=== PATIENT | female | born 1995 | race African-American/Black ===

== ENCOUNTER 2016-05-23 08:24 | Day surgery (SDC) | payer MEDICAID, OTHER ==
[2016-05-20 11:47] LABS: APPEARANCE,URINE SLIGHTLY-CLOUDY; BILIRUBIN,URINE NEGATIVE (NEGATIVE); GLUCOSE, URINE NEGATIVE (NEGATIVE); KETONES,URINE NEGATIVE (NEGATIVE); LEUKOCYTE ESTERASE,URINE NEGATIVE (NEGATIVE); NITRITE,URINE NEGATIVE (NEGATIVE); PROTEIN,URINE 30 mg/dL (NEGATIVE); URINE SPECIFIC GRAVITY 1.038; UROBILINOGEN,URINE NEGATIVE mg/dL (<2.0)
[2016-05-20 11:49] LABS: HEMATOCRIT 39.2 % (36.0-47.0); HEMOGLOBIN 13.5 g/dL (12.0-15.5); HGB HCT DIFFERENCE 1.3; MEAN CORPUSCULAR HEMOGLOBIN 30.6 pg (27.0-33.4); MEAN CORPUSCULAR HGB CONC 34.4 g/dL (32.0-36.0); MEAN CORPUSCULAR VOLUME 89 fl (80-97); RED BLOOD COUNT 4.41 10^6/uL (3.72-5.28); RED CELL DISTRIBUTION WIDTH 13.2 % (11.5-14.0); WHITE BLOOD COUNT 6.5 10^3/uL (4.0-10.5)
[2016-05-20 12:42] LABS: THYROID STIMULATING HORMONE 2.24 uIU/mL (0.47-4.68)
[~2016-05-23 08:24] MED LIST: LACTATED RINGERS 1000 ML IV PRN; LIDOCAINE 0.5% INJ-PF (5 MG/ML) 50 ML SDV SUBCUT PRN
[2016-05-23] MEDS ORDERED: FENTANYL CITRATE INJ/PF 250 MCG/5 ML AMPULE ONE ×2 (08:54)
[2016-05-23] MEDS ORDERED: MORPHINE SULFATE 10 MG/ML INJ ONE (08:55)
[2016-05-23] MEDS ORDERED: MIDAZOLAM 2 MG/2 ML INJ ONE (08:55)
[2016-05-23] MEDS ORDERED: PROPOFOL INJ 200 MG/20 ML VIAL IV ONE (08:55)
[2016-05-23] MEDS ORDERED: ACETAMINOPHEN 100 ML IV ONE (08:55)
[2016-05-23] MEDS ORDERED: OXYCODONE-ACETAMINOPHEN 5-325 MG TABLET PO PRN ×4 (09:11→11:31)
[2016-05-23] MEDS ORDERED: FENTANYL CITRATE INJ/PF 100 MCG/2 ML AMPUL IV PRN ×3 (09:11)
[2016-05-23] MEDS ORDERED: MEPERIDINE HCL/PF INJ 25 MG/1 ML DISP.SYRIN IV PRN (09:11)
[2016-05-23] MEDS ORDERED: PROMETHAZINE HCL INJ 25 MG/1 ML VIAL IV PRN ×2 (09:11)
[2016-05-23] MEDS ORDERED: DIPHENHYDRAMINE HCL 50 MG/ML VIAL IV PRN (09:11)
[2016-05-23] MEDS ORDERED: MORPHINE SULFATE 10 MG/ML INJ IV PRN (09:11)
--- NOTE | 2016-05-23 10:45 | Operative Report ---
Operative Report DATE OF SURGERY: 05/23/16 PREOPERATIVE DIAGNOSIS: Pelvic pain POSTOPERATIVE DIAGNOSIS: Bilateral clubbed fallopian tubes pelvic adhesions OPERATION: Diagnostic laparoscopy lysis of adhesions SURGEON: KOFI POWELL KILN CAR REPAIRER: OR staff ANESTHESIA: GA TISSUE REMOVED OR ALTERED: Pelvic adhesions COMPLICATIONS: None ESTIMATED BLOOD LOSS: 10 mL INTRAOPERATIVE FINDINGS: Dense pelvic adhesions bilateral clubbed fallopian tubes PROCEDURE: Patient was taken to the OR and placed in supine position. Gen. anesthesia was induced. She is placed in dorsolithotomy position using Martin stirrups. Her abdomen perineum and vagina were prepared and draped in sterile fashion. A sponge stick was placed in the vagina for manipulation of the uterus and the bladder was drained with red rubber catheter. An incision was made the umbilicus and an intraumbilical defect didn't find dilated allowing a 5 mm port to be placed bluntly. Laparoscopy confirmed appropriate placement. The abdomen was insufflated with CO2 gas. View of the pelvis was good. A suprapubic port was placed under laparoscopic visualization and a left lateral port also placed under laparoscopic visualization. Bilateral clubbed fallopian tubes were seen with adhesions. The adhesions were freed up using a blunt grasper and the Harmonic scalpel. The hydrosalpinx on the right was much worse. The fallopian tube does appear to adhesed directly over the ureter. I did drain the fallopian tube by making a small window which decompressed the tube greatly. The edges of the incision were cauterized. After freeing up the pelvic adhesions I decided to stop the case. The risk of ureteral injury was too great with removal of the fallopian tube at this time. If her pain returns and is significant she may benefit from a hysterectomy. I would also recommend at the same time a bilateral salpingectomy. Leaving the ovaries or not would certainly be a judgment call. The fallopian tubes especially the right tube appears appears adherent right over the ureter. For this reason ureteral lysis may be needed at the time of the surgery to ensure that it is not injured. The pelvis was irrigated of fluid. The the suprapubic port and left lateral port were removed under laparoscopic visualization. The umbilical port and scope were removed and Unasyn. The fascia at the umbilicus was closed with a 2- 0 Vicryl suture. The skin at all 3 sites was closed with a subcuticular 4-0 undyed Vicryl suture. All instruments removed from the vagina. Patient was extubated in the OR and taken recovery room in stable condition.
[2016-05-23] MEDS ORDERED: KETOROLAC TROMETHAMINE INJ/PF 30 MG/1 ML SDV ONE (11:14)
[2016-05-23] MEDS ORDERED: KETOROLAC TROMETHAMINE INJ/PF 30 MG/1 ML SDV IV PRN (11:28)
[2016-05-23 12:46] VITALS: BP 130/80
[2016-05-23] MEDS ORDERED: IBUPROFEN 800 MG TABLET PO PRN (14:00)
[2016-05-23] MEDS ORDERED: ONDANSETRON HCL INJ/PF 4 MG/2 ML SDV ONE (14:41)
[2016-05-23] MEDS ORDERED: ROCURONIUM BROMIDE INJ 50 MG/5 ML VIAL IV ONE (14:41)
[2016-05-23] MEDS ORDERED: LIDOCAINE 2% INJ-PF (20 MG/ML) 10 ML AMPUL ONE (14:41)
[2016-05-23] MEDS ORDERED: GLYCOPYRROLATE INJ 0.4 MG/2 ML VIAL ONE (14:41)
[2016-05-23] MEDS ORDERED: NEOSTIGMINE METHYLSULFATE 10 MG/10 ML VIAL ONE (14:41)
[2016-05-23] MEDS ORDERED: METOCLOPRAMIDE HCL INJ/PF 10 MG/2 ML SDV ONE (14:41)
[2016-05-23] MEDS ORDERED: SUCCINYLCHOLINE CHLORIDE INJ 200 MG/10 ML VIAL ONE (14:41)
== END 2016-05-23 12:40 | disposition home or self-care (01) ==
LOC: OROUT 08:24
PROVIDERS: ATTEND Obstetrics & Gynecology
PROC: 0DNW4ZZ Release Peritoneum, Percutaneous Endoscopic Approach (ICD-10-PCS; principal; 2016-05-23 10:30)
DX: R10.2 Pelvic and perineal pain (principal); N83.8 Other noninflammatory disorders of ovary, fallopian tube and broad ligament; E66.9 Obesity, unspecified; Z88.0 Allergy status to penicillin; Z88.8 Allergy status to other drugs, medicaments and biological substances; Z68.34 Body mass index [BMI] 34.0-34.9, adult
CPT/HCPCS: 36415; 84439; 84443; 85027; 81005; 81025; 49329; J2250; J3490 ×2; J3010; J1885; J2765; J2270; J0330; J2405; J2704; J0131; 840

== ENCOUNTER → 2016-06-10 | Outpatient (CLI) | payer OTHER | LOC: RAD 18:00 | PROVIDERS: ATTEND Obstetrics & Gynecology | DX: E04.9 Nontoxic goiter, unspecified (principal) | CPT/HCPCS: 76536 ==

== ENCOUNTER 2017-05-15 17:26 | Emergency (ER) | payer OTHER ==
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
[2017-05-15 19:46] VITALS: BP 126/88
== END 2017-05-15 19:46 | disposition home or self-care (01) ==
LOC: ER 17:26
DX: S16.1XXA Strain of muscle, fascia and tendon at neck level, initial encounter (principal); M54.2 Cervicalgia; M25.511 Pain in right shoulder; M25.512 Pain in left shoulder; R51 Headache; V89.2XXA Person injured in unspecified motor-vehicle accident, traffic, initial encounter
CPT/HCPCS: 99283

== ENCOUNTER → 2017-05-16 | Outpatient (CLI) | payer OTHER ==
[2017-05-18 05:41] LABS: HEPATITIS C VIRUS AB <0.1 s/co ratio (0.0-0.9)
[2017-05-18 07:24] LABS: HEPATITS B SURFACE ANTIGEN Negative (Negative)
== END ==
LOC: OD 17:40
PROVIDERS: ATTEND Advanced Practice Midwife
DX: Z11.59 Encounter for screening for other viral diseases (principal); Z11.3 Encounter for screening for infections with a predominantly sexual mode of transmission; Z11.4 Encounter for screening for human immunodeficiency virus [HIV]
CPT/HCPCS: 36415; 86592; 86701; 86803; 86804; 87340; 87491; 87591

== ENCOUNTER 2018-03-13 14:11 | Emergency (ER) | payer OTHER ==
[2018-03-13 14:32] VITALS: BP 129/85
--- NOTE | 2018-03-13 16:08 | ER Document Report ---
ED Medical Screen (RME) - General Chief Complaint: Vaginal Bleeding Stated Complaint: VAGINAL BLEEDING Time Seen by Provider: 03/13/18 15:47 TRAVEL OUTSIDE OF THE [place] IN LAST 30 DAYS: No - HPI Notes: 03/13/18 16:07 Patient is a 22-year-old female that presents to the emergency department for chief complaint of vaginal bleeding. Patient reports increased heavy vaginal bleeding over the last few days with large clots. She states 2 weeks ago she took a test that had a questionable positive results. LMP 01/01/18. ROS: GENERAL: Denies fever of chills CV: Denies chest pain : Vaginal bleeding PHYSICAL EXAMINATION: GENERAL: Well-appearing, well-nourished and in no acute distress. HEAD: Atraumatic, normocephalic. EYES: Pupils equal round extraocular movements intact, conjunctiva are normal. ENT: Nares patent NECK: Normal range of motion LUNGS: No respiratory distress Musculoskeletal: Normal range of motion NEUROLOGICAL: Normal speech, normal gait. PSYCH: Normal mood, normal affect. MDM: Patient seen and examined for rapid initial assessment. Vital signs reviewed. A comprehensive ED assessment and evaluation of the patient, analysis of test results and completion of the medical decision making process will be conducted by additional ED providers. - Related Data Allergies/Adverse Reactions: amoxicillin Allergy (Severe, Verified 03/13/18 14:14) Hives dimenhydrinate [From Dramamine] Allergy (Severe, Verified 03/13/18 14:14) itching acetaminophen [From Percocet] Allergy (Verified 03/13/18 14:14) oxycodone [From Percocet] Allergy (Verified 03/13/18 14:14) Past Medical History - General Last Menstrual Period: 01 January 2018 - Past Medical History Cardiac Medical History: Denies: Hx Coronary Artery Disease, Hx Heart Attack, Hx Hypertension Pulmonary Medical History: Denies: Hx Asthma, Hx Bronchitis, Hx COPD, Hx Pneumonia Neurological Medical History: Denies: Hx Cerebrovascular Accident, Hx Seizures Renal/ Medical History: Denies: Hx Peritoneal Dialysis Musculoskeltal Medical History: Denies Hx Arthritis - Immunizations Immunizations up to date: Yes Hx Diphtheria, Pertussis, Tetanus Vaccination: Yes Physical Exam - Vital signs Vitals: Temp Pulse Resp BP Pulse Ox 98.9 F 77 16 129/85 H 99 03/13/18 14:26 03/13/18 14:26 03/13/18 14:26 03/13/18 14:26 03/13/18 14:26 Course - Vital Signs Vital signs: Temp Pulse Resp BP Pulse Ox 98.9 F 77 16 129/85 H 99 03/13/18 14:26 03/13/18 14:26 03/13/18 14:26 03/13/18 14:26 03/13/18 14:26 Doctor's Discharge - Discharge Referrals: SOULEYMANE WYNNE CNM [Primary Care Provider] - Follow up as needed
--- NOTE | 2018-03-13 16:16 | ER Document Report ---
ED GI/ - General Chief Complaint: Vaginal Bleeding Stated Complaint: VAGINAL BLEEDING Time Seen by Provider: 03/13/18 15:47 Notes: 22-year-old female to emergency department chief complaint of vaginal bleeding. Patient currently not sure if she is or not. Has been having some heavy bleeding over the last couple of days. No significant abdominal pain but does have some pelvic cramping. Has not passed out. One prior with one live . States that she took a test at home and she thinks that it was positive but not real sure. Had missed her period last month and then again this month and then started bleeding here yesterday. TRAVEL OUTSIDE OF THE [place] IN LAST 30 DAYS: No - HPI Patient complains to provider of: Vaginal bleeding Timing/Duration: Gradual Quality of pain: Achy Severity at maximum: Mild Severity in ED: Mild Pain Level: 0 Location: Suprapubic Vaginal bleeding (Compared to normal period): Heavier, Passing clots. denies: Passing tissue - Related Data Allergies/Adverse Reactions: amoxicillin Allergy (Severe, Verified 03/13/18 14:14) Hives dimenhydrinate [From Dramamine] Allergy (Severe, Verified 03/13/18 14:14) itching acetaminophen [From Percocet] Allergy (Verified 03/13/18 14:14) oxycodone [From Percocet] Allergy (Verified 03/13/18 14:14) Past Medical History - General Information source: Patient Last Menstrual Period: 01 January 2018 - Social History Smoking Status: Never Smoker Frequency of alcohol use: None Drug Abuse: None Lives with: Family Family History: Reviewed & Not Pertinent Patient has suicidal ideation: No Patient has homicidal ideation: No - Past Medical History Cardiac Medical History: Denies: Hx Coronary Artery Disease, Hx Heart Attack, Hx Hypertension Pulmonary Medical History: Denies: Hx Asthma, Hx Bronchitis, Hx COPD, Hx Pneumonia Neurological Medical History: Denies: Hx Cerebrovascular Accident, Hx Seizures Renal/ Medical History: Denies: Hx Peritoneal Dialysis Musculoskeletal Medical History: Denies Hx Arthritis - Immunizations Immunizations up to date: Yes Hx Diphtheria, Pertussis, Tetanus Vaccination: Yes Review of Systems - Review of Systems Notes: Constitutional: denies: Chills, Diaphoresis, Fever, Malaise, Weakness EENT: denies: Eye discharge, Blurred vision, Tearing, Double vision, Nose congestion, Nose discharge, Throat swelling, Mouth pain Cardiovascular: denies: Palpitations, Heart racing, Orthopnea, Dyspnea, Chest pain Respiratory: denies: Cough, Hurts to breathe, Wheezing, Shortness of breath Gastrointestinal: denies: Abdominal pain, Diarrhea, Nausea, Vomiting, Black stools, bright red blood in stool Genitourinary: denies: Burning, Dysuria, Discharge, Frequency, Flank pain, Hematuria. Complaining of vaginal bleeding. Has missed her previous cycle. Musculoskeletal: denies: Joint pain, Joint swelling, Muscle pain, Muscle stiffness, back pain Hematologic/Lymphatic: denies: Anemia, Easy bleeding, Easy bruising, Blood clots Neurological/Psychological: denies: Confusion, Dementia, Depression, Loss of consciousness Skin: No lesions, no masses, no skin breakdown, no abscesses Physical Exam - Vital signs Vitals: Temp Pulse Resp BP Pulse Ox 98.9 F 77 16 129/85 H 99 03/13/18 14:26 03/13/18 14:26 03/13/18 14:26 03/13/18 14:26 03/13/18 14:26 Interpretation: Normal - General General appearance: Appears well, Alert - HEENT Head: Normocephalic, Atraumatic Eyes: Normal Pupils: PERRL - Respiratory Respiratory status: No respiratory distress Chest status: Nontender Breath sounds: Normal Chest palpation: Normal - Cardiovascular Rhythm: Regular Heart sounds: Normal auscultation Murmur: No - Abdominal Inspection: Normal Distension: No distension Bowel sounds: Normal Tenderness: Nontender Organomegaly: No organomegaly - Back Back: Normal, Nontender - Extremities General upper extremity: Normal inspection, Nontender, Normal color, Normal ROM , Normal temperature General lower extremity: Normal inspection, Nontender, Normal color, Normal ROM , Normal temperature, Normal weight bearing. No: Ivan's sign - Neurological Neuro grossly intact: Yes Cognition: Normal Orientation: AAOx4 Filippo Coma Scale Eye Opening: Spontaneous Filippo Coma Scale Verbal: Oriented Filippo Coma Scale Motor: Obeys Commands Filippo Coma Scale Total: 15 Speech: Normal Motor strength normal: LUE, RUE, LLE, RLE Sensory: Normal - Psychological Associated symptoms: Normal affect, Normal mood - Skin Skin Temperature: Warm Skin Moisture: Dry Skin Color: Normal Course - Re-evaluation Re-evalutation: 03/13/18 17:18 Patient's vital signs are normal. Not soaking more than 2 pads per hour for 2 hours. Not feeling like she is going to pass out. Having a large bleeding intermittently today. Was not sure if she was . HCG test was negative. I have given her instructions with regards to dysfunctional uterine bleeding. Patient is reliable. At this time will DC in stable condition with follow-up with DBA. 03/13/18 17:20 Laboratory 03/13/18 16:35 Urine Color RED Urine Appearance SLIGHTLY-CLOUDY Urine pH 5.0 Ur Specific [place] 1.030 Urine Protein 100 H Urine Glucose (UA) NEGATIVE Urine Ketones NEGATIVE Urine Blood LARGE H Urine Nitrite NEGATIVE Urine Bilirubin NEGATIVE Urine Urobilinogen NEGATIVE Ur Leukocyte Esterase NEGATIVE Urine WBC (Auto) 29 Urine RBC (Auto) >182 Squamous Epi Cells Auto 8 Urine Mucus (Auto) MANY Urine Ascorbic Acid 20 H Urine HCG, Qual NEGATIVE - Vital Signs Vital signs: Temp Pulse Resp BP Pulse Ox 98.9 F 77 16 129/85 H 99 03/13/18 14:26 03/13/18 14:26 03/13/18 14:26 03/13/18 14:26 03/13/18 14:26 - Laboratory Laboratory results interpreted by me: 03/13/18 16:35 Urine Protein 100 H Urine Blood LARGE H Urine Ascorbic Acid 20 H Discharge - Discharge Clinical Impression: Vaginal bleeding Condition: Good Disposition: HOME, SELF-CARE Instructions: Vaginal Bleeding ([facility]) Additional Instructions: You are soaking more than 2 pads per hour, severe pain, passing out or for any other concerns please return there is no indication at this time that you are . There is no way to know if you were . Continue to follow instructions as given. Follow-up with [facility]BA as needed. Forms: Return to Work Referrals: SOULEYMANE WYNNE CNM [CERTIFIED NURSE FISCAL OFFICER] - Follow up as needed KOFI SHARPE MD [Primary Care Provider] - Follow up as needed
[2018-03-13 17:12] LABS: APPEARANCE,URINE SLIGHTLY-CLOUDY; BILIRUBIN,URINE NEGATIVE (NEGATIVE); GLUCOSE, URINE NEGATIVE (NEGATIVE); KETONES,URINE NEGATIVE (NEGATIVE); LEUKOCYTE ESTERASE,URINE NEGATIVE (NEGATIVE); NITRITE,URINE NEGATIVE (NEGATIVE); PROTEIN,URINE 100 mg/dL (NEGATIVE); UROBILINOGEN,URINE NEGATIVE mg/dL (<2.0)
[2018-03-13 17:13] LABS: COLOR,URINE RED
== END 2018-03-13 18:17 | disposition home or self-care (01) ==
LOC: ER 14:11
DX: N93.9 Abnormal uterine and vaginal bleeding, unspecified (principal); R10.2 Pelvic and perineal pain; Z32.02 Encounter for pregnancy test, result negative; Z88.0 Allergy status to penicillin; Z88.8 Allergy status to other drugs, medicaments and biological substances; Z88.5 Allergy status to narcotic agent
CPT/HCPCS: 81001; 81025; 99284

== ENCOUNTER 2018-07-18 15:11 | Emergency (ER) | payer OTHER ==
--- NOTE | 2018-07-18 16:54 | ER Document Report ---
ED Eye Complaint - General Chief Complaint: Eye Problem Stated Complaint: RIGHT EYE PAIN Time Seen by Provider: 07/18/18 16:29 Primary Care Provider: KOFI SHARPE MD [ACTIVE STAFF] - Follow up as needed LIZ HUTCHINSON DO [ACTIVE STAFF] - Follow up tomorrow Mode of Arrival: Ambulatory Information source: Patient Notes: 22-year-old female presented to ED for complaint of pain swelling irritation and drainage from her right eye since Monday. She states she was seen at the urgent care on Monday and was told she had a cut to the eye and was prescribed erythr omycin ointment. She states she is continued to have irritation and discharge and the pain has increased. Patient does have erythema injected irritated conjunctivae with matting to the eyelashes. Eye exam does not show any fluorescein uptake visual acuity was completed and ophthalmology was consulted to ensure that this patient could follow-up tomorrow. TRAVEL OUTSIDE OF THE [place] IN LAST 30 DAYS: No - HPI Onset: Other Eye location: Right - Monday Injury: Yes - Possible Occurred at: Home Quality of pain: Burning, Pressure Severity: Moderate Pain Level: 2 Safety glasses worn: No Contact lenses worn: No Associated symptoms: Burning, Itching, Pain, Photophobia, Redness, Matting, Blurred vision - Related Data Allergies/Adverse Reactions: amoxicillin Allergy (Severe, Verified 07/18/18 15:14) Hives dimenhydrinate [From Dramamine] Allergy (Severe, Verified 07/18/18 15:14) itching acetaminophen [From Percocet] Allergy (Verified 07/18/18 15:14) oxycodone [From Percocet] Allergy (Verified 07/18/18 15:14) Past Medical History - General Information source: Patient - Social History Smoking Status: Never Smoker Frequency of alcohol use: None Drug Abuse: None Lives with: Family Family History: Reviewed & Not Pertinent Patient has suicidal ideation: No Patient has homicidal ideation: No - Past Medical History Cardiac Medical History: Reports: None Pulmonary Medical History: Reports: None EENT Medical History: Reports: None Neurological Medical History: Reports: None Endocrine Medical History: Reports: None Renal/ Medical History: Reports: None Malignancy Medical History: Reports: None GI Medical History: Reports: None Musculoskeletal Medical History: Reports None Skin Medical History: Reports None Psychiatric Medical History: Reports: None Traumatic Medical History: Reports: None Infectious Medical History: Reports: None Surgical Hx: Negative Past Surgical History: Reports: None - Immunizations Immunizations up to date: Yes Hx Diphtheria, Pertussis, Tetanus Vaccination: Yes Review of Systems - Review of Systems Constitutional: No symptoms reported EENT: Eye pain, Eye discharge, Blurred vision, Tearing Cardiovascular: No symptoms reported Respiratory: No symptoms reported Gastrointestinal: No symptoms reported Genitourinary: No symptoms reported Female Genitourinary: No symptoms reported Musculoskeletal: No symptoms reported Skin: No symptoms reported Hematologic/Lymphatic: No symptoms reported Neurological/Psychological: No symptoms reported -: Yes All other systems reviewed and negative Physical Exam - Vital signs Vitals: Temp Pulse Resp BP Pulse Ox 98.4 F 65 16 135/81 H 98 07/18/18 15:59 07/18/18 15:59 07/18/18 15:59 07/18/18 15:59 07/18/18 15:59 Interpretation: Normal - General General appearance: Appears well, Alert - HEENT Head: Normocephalic, Atraumatic Eyes: Normal Conjunctiva: Injected, Purulent discharge Cornea: No: Corneal abrasion, Corneal ulcer, Dendrite, Embedded foreign body, Flourescein stain uptake, Superficial foreign body Extraocular movements intact: Yes Eyelashes: Matted Pupils: PERRL Visual acuity- Right eye: 20/100 Visual acuity- Left eye: 20/70 Visual acuity- Both eyes: 20/70 Corrective lenses worn: Yes - Patient first told me she did not wear glasses t then stated she did Right intraocular pressure: 19 Left intraocular pressure: 13 Ears: Normal External canal: Normal Tympanic membrane: Normal Sinus: Normal Nasal: Normal Mouth/Lips: Normal Mucous membranes: Normal Pharynx: Normal Neck: Normal - Respiratory Respiratory status: No respiratory distress Chest status: Nontender Breath sounds: Normal Chest palpation: Normal - Cardiovascular Rhythm: Regular Heart sounds: Normal auscultation Murmur: No - Abdominal Inspection: Normal Distension: No distension Bowel sounds: Normal Tenderness: Nontender Organomegaly: No organomegaly - Back Back: Normal, Nontender - Extremities General upper extremity: Normal inspection, Nontender, Normal color, Normal ROM, Normal temperature General lower extremity: Normal inspection, Nontender, Normal color, Normal ROM, Normal temperature, Normal weight bearing. No: Ivan's sign - Neurological Neuro grossly intact: Yes Cognition: Normal Orientation: AAOx4 Filippo Coma Scale Eye Opening: Spontaneous Filippo Coma Scale Verbal: Oriented Filippo Coma Scale Motor: Obeys Commands Pender Coma Scale Total: 15 Speech: Normal Motor strength normal: LUE, RUE, LLE, RLE Sensory: Normal - Psychological Associated symptoms: Normal affect, Normal mood - Skin Skin Temperature: Warm Skin Moisture: Dry Skin Color: Normal Course - Re-evaluation Re-evalutation: 07/18/18 21:41 Dr Hutchinson consulted concerning his continued redness pain and drainage from her right eye since she was seen on Monday for a "cut to her eye ". Patient has been using erythromycin eye ointment since Monday and the pain and drainage have increased. I have discussed her exam her pressures and her visual acuity with the group contract analyst. At first patient told me she did not wear glasses. When I went back and talked with her again she stated she does have glasses that she wears to watch TV but does not wear them to drive or work. She states she also has contact lenses at home but they are old and outdated and she has not been to an group contract analyst recently so she does not wear them. Ophthalmology recommended patient be started on Polytrim 3 times a day and for her to be seen in his office tomorrow and to use the erythromycin eye ointment at nighttime. This was discussed with patient and patient agreed to follow-up with the group contract analyst tomorrow. Ophthalmology was given the patient's name phone number and date of for follow-up. Patient is to call at 8:00 in the morning to schedule appointment for tomorrow to be seen. - Vital Signs Vital signs: Temp Pulse Resp BP Pulse Ox 98.5 F 73 14 126/73 H 100 07/18/18 17:53 07/18/18 17:53 07/18/18 17:53 07/18/18 17:53 07/18/18 17:53 Discharge - Discharge Clinical Impression: Conjunctivitis Qualifiers: Conjunctivitis type: unspecified Laterality: right Qualified Code(s): H10.9 - Unspecified conjunctivitis Condition: Stable Disposition: HOME, SELF-CARE Additional Instructions: CONJUNCTIVITIS: You have an infection in your eye, commonly known as "pink eye." Conjunctivitis causes redness, mild discomfort, itching, and mattering on the e yelids. It is very contagious, so you must be careful to wash your hands after touching your face so you don't pass the infection on to others. Conjunctivitis is caused by both viruses and bacteria. It usually responds quickly to treatment with antibiotic drops. These should be placed in the eye as prescribed (usually every three to four hours while you're awake). If you wear contact lenses, don't put them in your eyes until the infection is cleared and you are no longer using the drops (unless your doctor advises you otherwise). Should you develop increasing eye pain, severe swelling, decreased vision, or fail to improve as expected, please return for re-examination. EYEDROP USE: Eyedrops are most easily applied by pulling down on the cheek just below the lower eyelid. The lower lid will pop out to form a pouch into which you can drop the medicine. A small brief sting is not unusual, especially if the eye is reddened and irritated already. Use the drops exactly as recommended. You should see the doctor at once if there is a decrease in vision, swelling of the eye, or an increase in discomfort. ANTIBIOTIC THERAPY: You have been given an antibiotic prescription. It's important that you take all the medication, unless instructed otherwise by your physician. Failure to complete the entire course can result in relapse of your condition. Common side effects of antibiotics include nausea, intestinal cramping, or diarrhea. Women may develop vaginal yeast infections, and babies can get yeast (thrush) in the mouth following the use of antibiotics. Contact your physician if you develop significant side effects from this medication. Allergy to this antibiotic can result in hives, wheezing, faintness, or itching. If symptoms of allergy occur, stop the medication and call the doctor. FOLLOW-UP CARE: If you have been referred to a physician for follow-up care, call the physicians office for an appointment as you were instructed or within the next two days. If you experience worsening or a significant change in your symptoms, notify the physician immediately or return to the Emergency Department at any time for re-evaluation. Use the Polytrim 3 times a day in the right eye 1 drop. Use the erythromycin ointment at bedtime only. Please call the group contract analyst at 8:00 in the morning and tell them that I have spoken with the group contract analyst Dr.[email or web address] trinh and he is expecting you to call in the morning to be seen tomorrow. Use the Polytrim 3 times a day until you see him tomorrow and then he will give you instructions after that. You had told me you did not wear glasses so I told him that but you have now told me that she wear glasses at home to watch TV and that you have had contacts in the past. Please let him know these things when you see him tomorrow. Forms: Elevated Blood Pressure, Return to Work Referrals: KOFI SHARPE MD [ACTIVE STAFF] - Follow up as needed LIZ HUTCHINSON DO [ACTIVE STAFF] - Follow up tomorrow
[2018-07-18] MEDS ORDERED: TETRACAINE HCL 0.5% OPH SOLN 4 ML OD ONE (17:01)
[2018-07-18] MEDS ORDERED: TETRACAINE HCL 0.5% OPH SOLN 4 ML ONE (17:03)
[2018-07-18] MEDS ORDERED: POLYMYXIN B SULFATE/TMP OPH SOLN (10 ML/ER DISP) OD PRN (17:44)
[2018-07-18 17:55] VITALS: BP 126/73
== END 2018-07-18 17:55 | disposition home or self-care (01) ==
LOC: ER 15:11
DX: H10.9 Unspecified conjunctivitis (principal); H57.11 Ocular pain, right eye; Z88.0 Allergy status to penicillin; Z88.6 Allergy status to analgesic agent
CPT/HCPCS: 99283; J3490